=== PATIENT | female | born 1970 | race Asian ===

== ENCOUNTER 2019-06-28 05:53 | Inpatient (IN) | payer OTHER ==
[2019-06-28] MEDS ORDERED: VANCOMYCIN 1 GM 250 ML IVPB (06:00)
[2019-06-28] MEDS ORDERED: CEFAZOLIN 2 GM/50 ML (PMX) 50 ML IVPB (07:00)
[2019-06-28] MEDS: SOD CHLORIDE 0.9% 1,000 ML IV ×2 (07:20→20:20)
[2019-06-28] MEDS ORDERED: MIDAZOLAM 1 MG/ML 2 ML INJ (07:46)
[2019-06-28] MEDS ORDERED: CLINDAMYCIN 900 MG (PMX) 50 ML IVPB (07:58)
[2019-06-28] MEDS ORDERED: LIDOCAINE 2% (SDV) 5 ML INJ (07:58)
[2019-06-28] MEDS ORDERED: PROPOFOL 40 ML (07:58)
[2019-06-28] MEDS ORDERED: ONDANSETRON 4 MG INJ (08:15)
[2019-06-28] MEDS ORDERED: DEXAMETHASONE 4 MG/ML 5 ML INJ (08:15)
[2019-06-28] MEDS ORDERED: FAMOTIDINE 20 MG INJ (08:15)
[2019-06-28] MEDS: LACTATED RINGER'S 1,000 ML IV ×3 (08:23→20:15)
[2019-06-28] MEDS ORDERED: HYDROmorphONE 0.5 MG/0.5 ML SYG IV (08:30)
[2019-06-28] MEDS ORDERED: ONDANSETRON 4 MG INJ IV ×2 (08:30)
[2019-06-28] MEDS: CLINDAMYCIN 900 MG (PMX) 50 ML IVPB (08:30)
[2019-06-28] MEDS ORDERED: PROCHLORPERAZINE 10 MG INJ IV (08:30)
[2019-06-28] MEDS ORDERED: HYDROmorphONE 1 MG/5 ML IV SYRINGE IV ×3 (08:30)
[2019-06-28] MEDS ORDERED: HYDROCODONE/APAP (5/325) TAB PO (08:30)
[2019-06-28] MEDS ORDERED: DIPHENHYDRAMINE 50 MG INJ IV ×2 (08:30)
[2019-06-28] MEDS ORDERED: FENTAnyl 50 MCG/ML VIAL IV ×2 (08:30)
[2019-06-28] MEDS ORDERED: MEPERIDINE 25 MG INJ IV (08:30)
[2019-06-28] MEDS ORDERED: OXYCODONE/ACETAMINOPHEN (5/325) TAB PO (08:30)
[2019-06-28] MEDS ORDERED: GENTAMICIN 80 MG INJ (08:49)
[2019-06-28] MEDS ORDERED: POLYMYXIN/BACITRACIN 1L IRRIG (08:49)
[2019-06-28] MEDS ORDERED: HYDROmorphONE 2 MG/ML SYG (09:38)
[2019-06-28] MEDS: BUPIVACAINE LIPOSOME/PF 266 MG/20 ML VIAL INFIL (10:24)
[2019-06-28] MEDS: NALOXONE (0.4 MG/ML) INJ IV (14:03)
[2019-06-28] MEDS: ALBUTEROL 0.083% (NEB) 2.5 MG/3 ML AMP HHN ×2 (15:04→15:15)
[2019-06-28] MEDS: ACETAMINOPHEN 325 MG TAB PO (20:00)
[2019-06-29] MEDS: LACTATED RINGER'S 1,000 ML IV (05:22)
[2019-06-29] MEDS: ACETAMINOPHEN 325 MG TAB PO (05:31)
[2019-06-29] MEDS ORDERED: traMADol 50 MG TAB PO (06:30)
[2019-06-29] MEDS: HYDROCODONE/APAP (5/325) TAB PO (08:41)
[2019-06-29] MEDS: SOD CHLORIDE 0.9% 1,000 ML IV (09:40)
== END 2019-06-29 11:59 | disposition home or self-care (01) | DRG 581 ==
LOC: REC 05:53 → MS1 15:34
PROC: 0KBJ0ZZ Excision of Left Thorax Muscle, Open Approach (ICD-10-PCS; principal; 2019-06-28 07:30)
PROC: 07B60ZZ Excision of Left Axillary Lymphatic, Open Approach (ICD-10-PCS; 2019-06-28 07:30)
PROC: 0HTV0ZZ Resection of Bilateral Breast, Open Approach (ICD-10-PCS; 2019-06-28 07:30)
PROC: 0JPV0WZ Removal of Totally Implantable Vascular Access Device from Upper Extremity Subcutaneous Tissue and Fascia, Open Approach (ICD-10-PCS; 2019-06-28 07:30)
PROC: 0HHV0NZ Insertion of Tissue Expander into Bilateral Breast, Open Approach (ICD-10-PCS; 2019-06-28 07:42)
DX: C50.912 Malignant neoplasm of unspecified site of left female breast (principal); I10 Essential (primary) hypertension; Z40.01 Encounter for prophylactic removal of breast; Z88.0 Allergy status to penicillin; Z80.3 Family history of malignant neoplasm of breast; Z92.21 Personal history of antineoplastic chemotherapy
CPT/HCPCS: 86703; 86803; 86850; 86900; 86901; 87340; 88309; 94664